=== PATIENT | female | born 1995 | race Caucasian/White ===

== ENCOUNTER 2022-11-04 09:15 | Emergency (ER) | payer BC, SELFPAY ==
[2022-11-04 09:16] VITALS: BP 147/101; PULSE 71; RESP 18; TEMP 35.7; O2SAT 100; BMI 25.4
--- NOTE | 2022-11-04 09:33 | ED.VIS.FEGU ---
HPI HPI - Female History of Present Illness Chief Complaint: Vag Bld, Preg Informant: patient Associated Symptoms Associated Symptoms: Positive for Frequency; Negative for Dysuria P: 0 Narrative Narrative: Patient is here visiting family from out of town, 10 weeks , started having vaginal spotting a couple days ago, it is waxed and waned, she had more last night and then this morning. Some of it was brighter, most of it has been dark, but she has had no bleeding more significant than just spotting. She denies any systemic symptoms ever developing some pelvic and low back cramping this morning. She has had some urinary frequency, no nausea or vomiting. No fevers or chills. No dysuria or hematuria that she thinks. Her OB recommended that she come and get evaluated in the ED this morning. She states she already had an ultrasound during this showing an IUP. PFSH PFSH Medical History no medical history no medical history Home Medications NK 11/04/22 [History Last Taken Unknown] Allergy/AdvReac Type Severity Reaction Status Date / Time No Known Allergies Allergy Verified 11/04/22 09:18 Social History Smoking Status: Never smoker ROS ROS ED Constitutional Constitutional ED: Denies chills or fever(s) Eyes Eyes: Denies change in vision or diplopia ENT ENT ED: Denies rhinorrhea or sore throat Cardiovascular Cardiovascular: Denies chest pain or palpitations Respiratory/Chest Respiratory/Chest: Denies cough or dyspnea Gastrointestinal Gastrointestinal: Reports abdominal pain; Denies diarrhea, nausea or vomiting Genitourinary Genitourinary ED: Reports as per HPI, low back pain, urinary frequency and vaginal bleeding; Denies dysuria, hematuria or vaginal discharge Musculoskeletal Musculoskeletal: Denies neck pain Integumentary Denies abscess or rash Neurologic Neurologic: Denies headache(s), paresthesias or weakness Psychiatric Psychiatric: Denies anxiety or suicidal thoughts EXAM Physical Exam Const Vital Signs: 11/04/22 09:16 Temperature 96.3 F L Temperature Source Temporal Pulse Rate 71 Respiratory Rate 18 Blood Pressure 147/101 H Blood Pressure Mean 116 Pulse Ox 100 Oxygen Delivery Method Room Air Positive well nourished and well developed General Appearance ED: well developed and NAD HEENT Reports moist mucous membranes normocephalic and atraumatic Eyes PERRL and EOMs intact bilaterally Resp normal respiratory effort Cardio regular rate, regular rhythm and no murmurs GI non-tender and non-distended Auscultation: normoactive bowel sounds Palpation: soft Speculum Exam - Vagina: vaginal bleeding; Negative for vaginal discharge Back/Spine no CVA tenderness General Back: other FROM Extremity normal to inspection and full ROM Neuro oriented x3, CN's II-XII intact bilaterally and no sensory deficits noted Sensorium / Orientation: awake and alert Motor Exam: strength 5/5 throughout Psych mental status grossly normal Skin no rashes or lesions noted and no wounds MDM MDM MDM Narrative Medical decision making narrative: I reviewed prior records from this patient, she brought up her electronic EMR from outside hospital, and I reviewed her blood type under her record showing that she is O+. Therefore RhoGAM not indicated and we do not need to obtain a type and screen here today. I did have the patient send a urinalysis and she has suprapubic discomfort with urinary frequency. It is negative for any infection and/or bacteria. I then performed a bedside ultrasound, was able to verify that the patient has a single intrauterine , difficult to measure the pole, but it is measuring approximately 8-week 4-day, however by dates she is 10 weeks, and according to the ultrasound that she recently has an outpatient, per her report, she is about 9.5 weeks. I discussed the possibility of intrauterine demise in early signs of miscarriage, although I was not able to see heartbeat does not mean it is not there because I had difficulty verifying structures because of the small size of it, even using the bladder as sonographic window. At this time, she is stable for discharge, discussed whether or not she wanted an official ultrasound and she did, so that was obtained. The ultrasound shows no heart tones, and the fetus is smaller than dates, all of which is consistent with intrauterine demise. I spoke with the tech about this. I reviewed the images. Later, I reviewed the radiologist interpretation and agree with that. I discussed with the patient and her mother. I offered images that the medical equipment repair technician provided, and they excepted those images, I answered all questions that they had there, and recommend close outpatient follow-up with her OB, and gave her appropriate discharge instructions. Lab Data Attestation: I reviewed the patient's lab results. Labs: Laboratory Results - last 24 hr 11/04/22 09:38 Urine Color Straw Urine Clarity Clear Urine pH 6.5 Ur Specific [place] 1.005 Urine Protein Negative Urine Glucose (UA) Normal Urine Ketones Negative Urine Occult Blood 50 H Urine Nitrite Negative Urine Bilirubin Negative Urine Urobilinogen Normal Ur Leukocyte Esterase Negative Urine RBC 0-5 SEEN Urine WBC 0 SEEN Ur Squamous Epith Cells 0-5 SEEN Urine Bacteria 0 SEEN Urine Mucus 0 SEEN Discharge Plan Triage Chief Complaint: Vag Bld, Preg ED Provider: Agusto Connor Dx/Rx/DC Orders Clinical Impression: Missed Instructions: ED DEMISE Prescriptions: No Action NK Primary Care Provider: JUAN DIEGO FONSECA Referrals: OB, your [Other] - As soon as possible NOT,DEFINED [Non-Staff] - Disposition Disposition: Home, Self Care
[2022-11-04 09:42] LABS: Bacteria 0 SEEN /hpf (None Seen); Mucous, Urine 0 SEEN /hpf (<or=2+); White Blood Cells 0 SEEN /hpf (0-5)
[2022-11-04 09:45] LABS: Color, Urine Straw (Yellow); Glucose, Dipstick Normal (Normal); Ketone-Dipstick Negative (Negative); Leukocyte Esterase-Dipstick Negative /ul (Negative); Nitrite-Dipstick Negative (Negative); Occult Blood-Urine 50 /ul (Negative); Protein-Dipstick Negative (Negative); Specific Gravity, Urine 1.005 (1.002-1.030); Urine Bilirubin Dipstick Negative (Negative); Urine Clarity Clear (Clear); Urine Urobilinogen Normal (Normal); Urine pH 6.5 (5.0 - 8.0)
[2022-11-04 09:52] LABS: Red Blood Cells-Urine 0-5 SEEN /hpf (0-5); Squamous Epithelial Cells - UA 0-5 SEEN /hpf (5-10)
--- NOTE | 2022-11-04 10:19 | US_ITS ---
STUDY: FIRST TRIMESTER OBSTETRICAL ULTRASOUND REASON FOR EXAM: Female, 27 years old pain, bleeding 08/24/2022. LMP: 08/24/2022. TECHNIQUE: Transvaginal TECHNICAL QUALITY: Adequate. PRIOR ULTRASOUND: None. FINDINGS: There is visualization of a single gestational sac in a normal intrauterine position. The mean sac diameter (MSD) measures 2.9 cm, indicating an estimated gestational age (EGA) of 8 weeks, 0 days. The gestational sac shape is within normal limits. There is no demonstrated yolk sac. The placenta is non-visualized. There is visualization of an embryo with no cardiac activity, consistent with intrauterine demise. The estimated gestation age (EGA) by LMP is 10 weeks, 2 days. The estimated date of delivery (SELENE) by LMP is 05/31/2023. The estimated gestation age (EGA) by US is 8 weeks, 0 days. The estimated date of delivery (SELENE) by US is 06/16/2023. The uterus measures 9 cm x 6 cm x 4.8 cm there are 3 mm x 4 mm x 2 mm echogenic focus adjacent to the gestational sac.. There is no demonstrated uterine fibroid. The cervix is closed. The right ovary measures 3.5 cm x 3.2 cm x 2.3 cm. There is a 2.6 cm x 2.2 cm x 1.7 cm right ovarian cyst. There is no visualized right adnexal mass or complex lesion. The left ovary measures 1.5 cm x 1.2 cm x 1.1 cm. There is no left ovarian cyst. There is no visualized left adnexal mass or complex lesion. There is no fluid in the cul de sac. US/Transvaginal w/Preg US IMPRESSION: demise. Electronically Signed: Vinod Steven MD at 11:52 EST ,
[2022-11-04 11:54] VITALS: BP 133/62; PULSE 77; RESP 16; O2SAT 99
== END 2022-11-04 11:55 | disposition home or self-care (01) ==
PROVIDERS: Emergency Provider Emergency Medicine; Visit Provider Emergency Medicine
DX: O02.1 Missed abortion (principal)
CPT/HCPCS: 76817; 81001; 99282